=== PATIENT | male | born 1980 | race Caucasian/White ===

== ENCOUNTER → 2018-07-15 13:54 | Outpatient (CLI) | payer OTHER, SELFPAY ==
--- NOTE | 2018-07-15 13:57 | DI.MRI.S_ITS ---
PROCEDURE: MR THORACIC SPINE WO CON INDICATIONS: MYOFASCIAL STRAIN TECHNIQUE: Noncontrast sagittal T1 spine echo and T2 fast spin echo, sagittal STIR, axial T1 and T2 fast spin echo through the thoracic spine. COMPARISON: None. FINDINGS: Image quality: Excellent. Alignment and Curvature: There is normal bony alignment. Bone Marrow: There is an intraosseous hemangioma in T11 vertebral body. Marrow signal is otherwise normal. No acute vertebral body compression fractures. Spinal Cord: Visualized spinal cord is normal in size and signal. Paraspinous Soft Tissues: No paravertebral masses. Miscellaneous: There is degenerative disc disease with mild loss of disc height and disc desiccation at T6-T7. Mild posterior disc bulge is seen at T6-T7. On axial images, central canal and foramina appear widely patent at all scanned levels. IMPRESSION: 1. Mild degenerative disc disease at T6-T7. 2. No central canal stenosis or foraminal stenosis. Dictated by: Fátima Thornton M.D. on 07/15/2018 at 16:10 Approved by: Fátima Thornton M.D. on 07/15/2018 at 18:05
== END ==
PROVIDERS: Family Provider Family Medicine; PCP Family Medicine; Visit Provider Family Medicine
DX: S29.019A Strain of muscle and tendon of unspecified wall of thorax, initial encounter (principal); M51.34 Other intervertebral disc degeneration, thoracic region
CPT/HCPCS: 72146

== ENCOUNTER 2018-08-05 08:04 | Outpatient (CLI) | payer OTHER, SELFPAY ==
[2018-08-05] VITALS (11 sets, daily range): BP systolic 115–151; BP diastolic 81–99; PULSE 76–92; RESP 16–20; TEMP 36.7; O2SAT 96–100
--- NOTE | 2018-08-05 08:05 | DI.RAD.S_ITS ---
PROCEDURE: PAIN C/T INTERLAMINAR INJECT INDICATIONS: INTERVERTEBRAL DISC PLACEMENT FINDINGS: Fluoroscopic spot filming was performed to verify placement of spinal needles at the T9-T10 level(s), as labeled on the films. Appropriate location(s) of the needle tip(s) was confirmed by injection of iodinated contrast. IMPRESSION: Fluoroscopy for pain management. Dictated by: Fátima Thornton M.D. on 08/05/2018 at 16:22 Approved by: Fátima Thornton M.D. on 08/05/2018 at 16:23
[2018-08-05] MEDS: MIDAZOLAM 5 MG/5 ML VIAL IV (09:10)
[2018-08-05] MEDS: BUPIVACAINE 0.25% (PF) VIAL 2 ML INJ (09:21)
[2018-08-05] MEDS: IOPAMIDOL 15 ML VIAL 3 ML INJ (09:22)
[2018-08-05] MEDS: DEXAMETHASONE 10 MG/ML VIAL 30 MG INJ (09:22)
--- NOTE | 2018-08-05 09:30 | PM.PROC.1 ---
Procedures Date/Time Date of procedure: 08/05/18 Time of procedure: 09:31 General Procedure description: Preop diagnosis: Thoracic stenosis with HNP Postprocedure diagnosis: Thoracic stenosis with HNP Physician: Maurice Aguirre D.O. Indications: Teja is referred by Dr. Hu for treatment of thoracic DDD/DJD with radiculopathy Description of procedure: Fluoroscopic guided, contrast controlled T8-9 translaminar epidural steroid injection with conscious sedation. Following denial of allergy review potential side effects and complications, including, but not necessarily limited to, infection, allergic reaction, local tissue breakdown, temporary as well as permanent nerve injury, stroke, paralysis and possible , the patient indicated that they understood and agreed to proceed. An informed consent document was signed by the patient, witnessed by the nurse, and placed in the patient's chart. Additionally other treatment options including modalities, medications and physical therapy were reviewed with the patient. After review of previous anaesthesic history and IV conscious sedation the patient was deemed safe to proceed with todays procedure with IV conscious sedation as ASA class II designation. Safety time-out was performed to confirm patient ID, procedure to be performed and site of procedure. IV sedation was accomplished with a combination of 5mg of Versed administered by the RN after DO order, titrated to patient comfort during the course of the procedure while the patient remained responsive to all verbal commands In the prone position, following sterile prep and drape of the thoracic region the T8-9 translaminar space was identified fluoroscopically. The skin was anesthetized via 25 gauge 20 mm sheath with 1% lidocaine solution. At this point a 20 gauge epidural needle was atraumatically introduced and advanced under fluoroscopic guidance into the region of the T8-9 translaminar space depth was confirmed on lateral view. Radiographic data, including multiple fluoroscopic views of the thoracic spine, reveals spinal needle at the T8-9 translaminar space. Lateral views then showed the placement of the needle in the epidural space. Subsequent view show contrast material flowing superiorly and inferiorly in the epidural space. No vascular or intrathecal uptake is observed. At this point using loss of resistance technique with saline and the epidural space was entered. This was confirmed followed negative aspiration and injection of approximately 1.5 cc of Isovue 200 showed excellent epidural flow without vascular or intrathecal uptake. At this point, 1 cc of 1% lidocaine solution was admitted as a test dose and the patient was observed for an appropriate period of time without signs or symptoms of complications, including abdominal pain, shortness of breath, bilateral upper and lower extremity weakness, nausea and vomiting, prior to steroid injection. Subsequently, 3 cc or 30 mg of dexamethasone was then injected without incident. The patient tolerated the procedure well without signs of complications and subsequently was transferred to the recovery room for further monitoring. The patient was then transferred to the recovery area with their observed for an appropriate time after the injection. Patient reported a VAS score of 7 prior to the procedure and postprocedure VAS of 2. Total fluoroscopy time: 56.3 sec Total conscious sedation time: 24 min Maurice Aguirre D.O. Complications: none
== END 2018-08-05 09:52 ==
LOC: RAD 08:05
PROVIDERS: Family Provider Family Medicine; PCP Family Medicine; Visit Provider Physical Medicine & Rehabilitation
DX: M51.14 Intervertebral disc disorders with radiculopathy, thoracic region (principal); M48.04 Spinal stenosis, thoracic region
CPT/HCPCS: 62321; 99152; J1100; J2250

== ENCOUNTER → 2020-03-04 16:08 | Outpatient (CLI) | payer OTHER, SELFPAY ==
--- NOTE | 2020-03-04 16:12 | DI.RAD.S_ITS ---
PROCEDURE: XR THORACIC SPINE 3V INDICATIONS: Progressive localized pain around T10 TECHNIQUE: 3 views of the thoracic spine were acquired. COMPARISON: None. FINDINGS: Bones: No fractures or dislocations. No suspicious bony lesions. Soft tissues: No paravertebral stripe thickening. IMPRESSION: Negative examination. If the patient's pain or other symptoms persist, consider further evaluation with MRI Dictated by: Corey Vizcarra M.D. on 03/04/2020 at 16:28 Approved by: Corey Vizcarra M.D. on 03/04/2020 at 16:29
== END ==
PROVIDERS: Family Provider Family Medicine; Referring Provider Family Medicine; Visit Provider Family Medicine
DX: M51.24 Other intervertebral disc displacement, thoracic region (principal)
CPT/HCPCS: 72072

== ENCOUNTER → 2020-09-15 09:30 | Outpatient (CLI) | payer OTHER, SELFPAY ==
[2020-09-15 10:03] LABS: Add Manual Diff / Slide Review NO; Basophils Absolute Auto 100 /uL (0-100); Basophils Percent Auto 1.1 % (0-2); Eosinophils Absolute Auto 100 /uL (0-450); Eosinophils Percent Auto 1.5 % (2-4); Hematocrit 46.4 % (41-53); Lymphocytes Absolute Auto 1700 /uL (1100-4500); Lymphocytes Percent Auto 37.5 % (25-40); Mean Corpuscular HGB Conc 34.4 % (30-36); Mean Corpuscular Hemoglobin 30.6 PG (26-34); Mean Corpuscular Volume 88.9 fL (80-100); Monocytes Absolute Auto 300 /uL (0-900); Monocytes Percent Auto 6.5 % (3-14); Neutrophils Absolute Auto 2500 /uL (1500-7000); Neutrophils Percent Auto 53.4 % (50-75); Platelet Count 242 X10^3/uL (150-400); Red Blood Cell Count 5.22 X10^6/uL (4.5-5.9); Red Cell Distribution Width 12.9 % (11.6-14.8); White Blood Cell Count 4.7 X10^3/uL (4.5-11.0)
[2020-09-15 10:49] LABS: Alanine Aminotransferase 25 IU/L (<50); Albumin 4.8 g/dL (3.5-5.0); Albumin Globulin Ratio 1.7 (1.0-2.8); Alkaline Phosphatase 41 U/L (38-126); Aspartate Aminotransferase 23 IU/L (17-59); BUN Creatinine Ratio 18.1 (6-22); Bilirubin Total 0.9 mg/dL (0.2-1.3); Blood Urea Nitrogen 17 mg/dL (9-20); Calcium 9.8 mg/dL (8.4-10.2); Carbon Dioxide 28 mmol/L (22-32); Chloride 103 mmol/L (98-107); Cholesterol 194 mg/dL (140-199); Estimated Glomerular Filt Rate > 60.0 mL/min (>60); Globulin 2.9 g/dL (1.7-4.1); Glucose 106 mg/dL (70-100); HDL Cholesterol 74 mg/dL (40-60); HEMOLYSIS < 15 (0-50); LDL Cholesterol Calculated 100 mg/dL (<100); Potassium 4.1 mmol/L (3.4-5.1); Sodium 137 mmol/L (137-145); Total Protein 7.7 g/dL (6.3-8.2); Triglycerides 100 mg/dL (35-150)
[2020-09-15 11:21] LABS: TSH w/ Reflex to FT4 4.02 uIU/mL (0.47-4.68)
== END ==
PROVIDERS: Family Provider Family Medicine; PCP Family Medicine; Referring Provider Family Medicine; Visit Provider Family Medicine
DX: Z13.220 Encounter for screening for lipoid disorders (principal); Z13.228 Encounter for screening for other metabolic disorders; Z13.29 Encounter for screening for other suspected endocrine disorder
CPT/HCPCS: 36415; 80053; 80061; 84443; 85025

== ENCOUNTER → 2021-09-13 07:26 | Outpatient (CLI) | payer OTHER, SELFPAY ==
[2021-09-13 08:19] LABS: Alanine Aminotransferase 54 IU/L (<50); Albumin 4.8 g/dL (3.5-5.0); Albumin Globulin Ratio 1.7 (1.0-2.8); Alkaline Phosphatase 42 U/L (38-126); Aspartate Aminotransferase 39 IU/L (17-59); BUN Creatinine Ratio 13.4 (6-22); Bilirubin Total 0.7 mg/dL (0.2-1.3); Blood Urea Nitrogen 13 mg/dL (9-20); Calcium 9.7 mg/dL (8.4-10.2); Carbon Dioxide 27 mmol/L (22-32); Chloride 104 mmol/L (98-107); Cholesterol 197 mg/dL (140-199); Estimated Glomerular Filt Rate > 60.0 mL/min (>60); Globulin 2.8 g/dL (1.7-4.1); Glucose 111 mg/dL (70-100); HDL Cholesterol 98 mg/dL (40-60); HEMOLYSIS < 15 (0-50); LDL Cholesterol Calculated 88 mg/dL (<100); Potassium 4.5 mmol/L (3.4-5.1); Sodium 140 mmol/L (137-145); Total Protein 7.6 g/dL (6.3-8.2); Triglycerides 56 mg/dL (35-150)
[2021-09-13 08:21] LABS: Add Manual Diff / Slide Review NO; Basophils Absolute Auto 100 /uL (0-100); Basophils Percent Auto 1.3 % (0-2); Eosinophils Absolute Auto 100 /uL (0-450); Eosinophils Percent Auto 2.3 % (2-4); Hematocrit 45.7 % (41-53); Hemoglobin 15.2 g/dL (13.5-17.5); Lymphocytes Absolute Auto 1300 /uL (1100-4500); Lymphocytes Percent Auto 32.1 % (25-40); Mean Corpuscular HGB Conc 33.3 % (30-36); Mean Corpuscular Hemoglobin 29.5 PG (26-34); Mean Corpuscular Volume 88.7 fL (80-100); Monocytes Absolute Auto 300 /uL (0-900); Monocytes Percent Auto 6.5 % (3-14); Neutrophils Absolute Auto 2400 /uL (1500-7000); Neutrophils Percent Auto 57.8 % (50-75); Platelet Count 242 X10^3/uL (150-400); Red Blood Cell Count 5.15 X10^6/uL (4.5-5.9); White Blood Cell Count 4.1 X10^3/uL (4.5-11.0)
[2021-09-13 08:54] LABS: TSH w/ Reflex to FT4 2.66 uIU/mL (0.47-4.68)
[2021-09-18 11:08] LABS: Testosterone % Fr + Wkly bound 22.1 % (9.0-46.0); Testosterone Fr+Wkly bound 112.8 ng/dL (40.0-250.0); Testosterone, Total 510.4 ng/dL (264.0-916.0)
== END ==
PROVIDERS: Family Provider Family Medicine; PCP Family Medicine; Referring Provider Family Medicine; Visit Provider Family Medicine
DX: Z00.00 Encounter for general adult medical examination without abnormal findings (principal); M51.24 Other intervertebral disc displacement, thoracic region
CPT/HCPCS: 36415; 80053; 80061; 84403; 84443; 85025

== ENCOUNTER 2023-04-29 08:17 | Emergency (ER) | payer OTHER, SELFPAY ==
[2023-04-29 08:32] VITALS: BP 184/108; PULSE 83; RESP 18; TEMP 36.6; O2SAT 99; BMI 27.4
[2023-04-29 08:48] LABS: Add Manual Diff / Slide Review NO; Basophils Absolute Auto 100 /uL (0-100); Eosinophils Absolute Auto 100 /uL (0-450); Eosinophils Percent Auto 1.1 % (2-4); Hematocrit 44.5 % (41-53); Hemoglobin 15.2 g/dL (13.5-17.5); Lymphocytes Absolute Auto 1900 /uL (1100-4500); Lymphocytes Percent Auto 21.5 % (25-40); Mean Corpuscular HGB Conc 34.2 % (30-36); Mean Corpuscular Hemoglobin 30.4 PG (26-34); Mean Corpuscular Volume 88.9 fL (80-100); Monocytes Absolute Auto 600 /uL (0-900); Monocytes Percent Auto 6.7 % (3-14); Neutrophils Absolute Auto 6200 /uL (1500-7000); Neutrophils Percent Auto 69.7 % (50-75); Platelet Count 312 X10^3/uL (150-400); Red Blood Cell Count 5.01 X10^6/uL (4.5-5.9); Red Cell Distribution Width 13.4 % (11.6-14.8); White Blood Cell Count 8.9 X10^3/uL (4.5-11.0)
[2023-04-29 08:50] LABS: Bacteria Urine Occasional (0-1); RBC Urine 0-1/HPF (0-5/HPF); WBC Urine 0-1/HPF (0-5/HPF)
[2023-04-29 08:51] LABS: Culture Indicated Urine Cult Not Indicated; Squamous Epithelial Cell Urine 0-1 /HPF (0-5/HPF)
[2023-04-29 08:52] LABS: Alanine Aminotransferase 30 IU/L (<50); Albumin 4.8 g/dL (3.5-5.0); Albumin Globulin Ratio 1.3 (1.0-2.8); Alkaline Phosphatase 53 U/L (38-126); Aspartate Aminotransferase 31 IU/L (17-59); Bilirubin Total 0.7 mg/dL (0.2-1.3); Blood Urea Nitrogen 16 mg/dL (9-20); Calcium 9.9 mg/dL (8.4-10.2); Carbon Dioxide 23 mmol/L (22-32); Chloride 103 mmol/L (98-107); Estimated Glomerular Filt Rate > 60 mL/min (>60); Globulin 3.6 g/dL (1.7-4.1); Glucose 102 mg/dL (70-100); HEMOLYSIS 37 (0-50); Lipase 140 U/L (23-300); Sodium 138 mmol/L (137-145); Total Protein 8.4 g/dL (6.3-8.2)
[2023-04-29] MEDS: KETOROLAC 30 MG/ML VIAL IV (08:58)
[2023-04-29 09:00] VITALS: O2SAT 96
[2023-04-29 09:01] VITALS: BP 148/108; PULSE 83; RESP 22; O2SAT 100
--- NOTE | 2023-04-29 09:17 | DI.CT.S_ITS ---
PROCEDURE: CT KIDNEY URETER BLADDER (KUB) INDICATIONS: R side flank pain eval for stone TECHNIQUE: Axial sections were acquired from the lung bases to the pubic symphysis. Coronal and sagittal reformats were performed. For radiation dose reduction, the following was used: automated exposure control, adjustment of mA and/or kV according to patient size. COMPARISON: None. FINDINGS: Image quality: Excellent. Lung bases: Unremarkable. Heart: No significant findings. URINARY: Right Kidney: Mild hydronephrosis. Multiple tiny nonobstructing stones, the largest of which is in the lower pole, measuring 2 mm. Right Ureter: A 5 x 4 mm stone obstructs the right ureter at the level of the ureterovesical junction. It has a Hounsfield measurement of 725. It results in mild hydroureter and hydronephrosis. Left Kidney: 5 mm nonobstructing lower pole stone measuring 1002 Hounsfield units. No hydronephrosis. Left Ureter: No hydroureter. Bladder: Normal wall thickness. No stones. ABDOMEN: Liver: Unremarkable. Gallbladder: Contracted, without calcified gallstones, within normal limits. Biliary ducts: Unremarkable. Pancreas: Unremarkable. Spleen: Unremarkable. Adrenal Glands: Unremarkable. Stomach and Bowel: Occasional colonic diverticuli. Otherwise unremarkable. Peritoneum: No abnormal intraperitoneal fluid. No free air. Ventral Wall: No hernia. Abdominal Nodes: No enlarged retroperitoneal or mesenteric lymph nodes. Vessels: Aorta and inferior vena cava are normal in size. PELVIS: Pelvic Organs: Unremarkable. Pelvic Nodes: Unremarkable. Miscellaneous: No inguinal hernias are seen. Bones: Unremarkable. IMPRESSION: 1. A 5 x 4 mm stone obstructs the right ureter at the level of the ureterovesical junction, with mild resulting hydronephrosis. 2. Bilateral nonobstructing stones. 3. Hounsfield measurements of largest stones as described above. Dictated by: Fred Sauceda M.D. on 04/29/2023 at 10:05 Approved by: Fred Sauceda M.D. on 04/29/2023 at 10:12
--- NOTE | 2023-04-29 09:17 | ED.GENADULT ---
HPI - General Adult General Chief complaint: Abdominal Pain Stated complaint: sent by [place]/ abd pain starts in back Time Seen by Provider: 04/29/23 08:55 Source: patient Mode of arrival: Ambulatory History of Present Illness HPI narrative: Patient is a 42-year-old male who was sent over from the walk-in clinic for evaluation of right flank pain. He states that a couple days ago he started to have right-sided flank pain. Initially thought that it was muscular in origin however since that time and has now progressed to pain down the right side of his abdomen into his right testicle. He is not having any urinary symptoms. By the time I evaluated him he had received a dose of Toradol and he states his pain has almost completely gone. No fevers. No blood in his urine. No history of kidney stones. No prior history of abdominal surgeries. No vomiting. Has not tried anything for symptoms prior to arrival. Related Data Previous Rx's Medication Instructions Recorded ibuprofen 800 mg tablet 800 mg PO Q8H PRN pain #90 tabs 06/06/20 lidocaine 5 % topical patch 1 patch topical DAILY #30 ea 01/24/22 (Lidoderm) albuterol sulfate 90 mcg/actuation See Rx Instructions .Route 07/24/22 aerosol inhaler .COMPLEX #36 grams lisinopril 20 mg tablet 20 mg PO DAILY #90 tabs 01/28/23 methocarbamol 500 mg tablet 500 mg PO BEDTIME PRN back pain 03/07/23 #30 tabs hydrocodone 5 mg-acetaminophen 325 1 tab PO BID PRN pain #60 tabs 04/19/23 mg tablet hydrocodone 5 mg-acetaminophen 325 1 tab PO Q4-6H PRN pain #12 tabs 04/29/23 mg tablet ondansetron 4 mg disintegrating 4 mg PO Q6H PRN nausea and 04/29/23 tablet vomiting #14 tabs tamsulosin 0.4 mg capsule (Flomax) 0.4 mg PO DAILY #14 caps 04/29/23 Allergies Allergy/AdvReac Type Severity Reaction Status Date / Time latex [LATEX] Allergy Unknown Verified 01/04/23 15:14 Review of Systems Review of Systems ROS Unobtainable: All systems reviewed & are unremarkable except as noted in HPI and below Patient History Medical History Allergic rhinitis (Unknown) Asthma (Unknown) Epicondylitis, lateral (~2011) Hyperglycemia Hypertension Low back pain (Unknown) Well adult on routine health check Surgical History No history of previous surgery Family History Mother Hearing loss Memory loss Grandfather Cancer Alzheimer disease Grandfather Cancer Social History Smoking Status: Never smoker alcohol intake: current (14 beers per week ) substance use type: does not use Smoking Status: Never smoker Substance Use Type: does not use Exam Initial Vital Signs Initial Vital Signs: Vital Signs Temperature 97.8 F 04/29/23 08:32 Pulse Rate 83 04/29/23 08:32 Respiratory Rate 18 04/29/23 08:32 Blood Pressure 184/108 H 04/29/23 08:32 Pulse Oximetry 99 04/29/23 08:32 Oxygen Delivery Method Room Air 04/29/23 08:32 Const General: cooperative, comfortable and No ill appearing HENMT Head: normal to inspection and normocephalic Resp Effort & Inspection: normal respiratory effort Cardio Rate: regular rate GI Inspection: normal to inspection and non-distended Palpation: soft, No firm and No tender Back/Spine/Pelvis Back: No CVA tenderness Skin General: no rashes or lesions noted Neuro General: patient alert, patient awake and moves all extremities Extrem General: normal to inspection and capillary refill normal Course Orders Ordered: ED Orders 04/29/23 08:25 Urine Microscopic Stat 04/29/23 08:30 Complete Blood Count AUTO DIFF Stat Comprehensive Metabolic Panel Stat Lipase Stat 04/29/23 09:17 CT kidney ureter bladder (KUB) Stat Ondansetron HCl (Ondansetron 4 Mg/2 Ml Inj) 4 mg IV NOW PRN PRN Reason: Nausea And Vomiting Ondansetron HCl (Ondansetron 4 Mg Odt) 4 mg PO NOW PRN PRN Reason: Nausea And Vomiting Discontinued Medications Ketorolac Tromethamine (Ketorolac 30 Mg/Ml Vial) 30 mg IV NOW ONE Stop: 04/29/23 08:56 Last Admin: 04/29/23 08:58 Dose: 30 mg Documented By: AT Vital Signs Vital signs: Vital Signs - 8 hr 06/26/23 08:32 04/29/23 09:00 04/29/23 09:01 Temperature 97.8 F Pulse Rate 83 83 Respiratory Rate 18 22 Blood Pressure 184/108 H Pulse Oximetry 99 96 100 Oxygen Delivery Method Room Air Room Air 04/29/23 09:01 04/29/23 09:25 04/29/23 09:25 Temperature Pulse Rate 78 Respiratory Rate Blood Pressure 148/108 H 151/99 H Pulse Oximetry 97 Oxygen Delivery Method 04/29/23 09:30 04/29/23 09:30 Temperature Pulse Rate 79 Respiratory Rate 18 Blood Pressure 136/85 Pulse Oximetry 95 Oxygen Delivery Method Room Air Medical Decision Making Lab Data Lab results reviewed: Yes I reviewed the patient's lab results. 04/29/23 08:30 04/29/23 08:30 Labs: Lab Results 04/29/23 04/29/23 04/29/23 Range/Units 08:25 08:30 08:30 WBC 8.9 (4.5-11.0) X10^3/uL RBC 5.01 (4.5-5.9) X10^6/uL Hgb 15.2 (13.5-17.5) g/dL Hct 44.5 (41-53) % MCV 88.9 (80-100) fL MCH 30.4 (26-34) PG MCHC 34.2 (30-36) % RDW 13.4 (11.6-14.8) % Plt Count 312 (150-400) X10^3/uL Neut % (Auto) 69.7 (50-75) % Lymph % (Auto) 21.5 L (25-40) % [place] % (Auto) 6.7 (3-14) % Eos % (Auto) 1.1 L (2-4) % Baso % (Auto) 1.0 (0-2) % Neut # (Auto) 6200 (1357-2647) /uL Lymph # (Auto) 1900 (1114-5275) /uL [place] # (Auto) 600 (0-900) /uL Eos # (Auto) 100 (0-450) /uL Baso # (Auto) 100 (0-100) /uL Sodium 138 (137-145) mmol/L Potassium 4.0 (3.4-5.1) mmol/L Chloride 103 (98-107) mmol/L Carbon Dioxide 23 (22-32) mmol/L BUN 16 (9-20) mg/dL Creatinine 1.23 (0.66-1.25) mg/dL Estimated GFR > 60 (>60) mL/min BUN/Creatinine Ratio 13.0 (6-22) Glucose 102 H (70-100) mg/dL Calcium 9.9 (8.4-10.2) mg/dL Total Bilirubin 0.7 (0.2-1.3) mg/dL AST 31 (17-59) IU/L ALT 30 (<50) IU/L Alkaline Phosphatase 53 (38-126) U/L Total Protein 8.4 H (6.3-8.2) g/dL Albumin 4.8 (3.5-5.0) g/dL Globulin 3.6 (1.7-4.1) g/dL Albumin/Globulin Ratio 1.3 (1.0-2.8) Lipase 140 (23-300) U/L Urine RBC 0-1/hpf (0-5/HPF) Urine WBC 0-1/hpf (0-5/HPF) Ur Squamous Epith Cells 0-1 /hpf (0-5/HPF) Urine Bacteria Occasional (0-1) (None) Ur Culture Indicated? Cult not indicated Urine Dip Bedside Urine Glucose Negative Bedside Urine Bilirubin - Negative Bedside Urine Ketone - Negative Urine Specific [place] 1.020 Bedside Urine Occult Blood + Bedside Urine pH 6.0 Bedside Urine Protein - Negative Bedside Urine Urobilinogen - Negative Bedside Urine Nitrite - Negative Bedside Urine Leukocytes - Negative Esterase Point of care testing: Urine Dip Bedside Urine Glucose Negative Bedside Urine Bilirubin - Negative Bedside Urine Ketone - Negative Urine Specific [place] 1.020 Bedside Urine Occult Blood + Bedside Urine pH 6.0 Bedside Urine Protein - Negative Bedside Urine Urobilinogen - Negative Bedside Urine Nitrite - Negative Bedside Urine Leukocytes - Negative Esterase Imaging Data CT scan - abdomen/pelvis: Radiologist's Impression: PROCEDURE:? CT KIDNEY URETER BLADDER (KUB) ? INDICATIONS:? R side flank pain eval for stone ? TECHNIQUE:? Axial sections were acquired from the lung bases to the pubic symphysis.? Coronal and sagittal reformats were performed.? For radiation dose reduction, the following was used: ?automated exposure control, adjustment of mA and/or kV according to patient size.? ? COMPARISON:? None. ? FINDINGS:? Image quality:? Excellent.? ? Lung bases:? Unremarkable.? ? Heart:? No significant findings. ? URINARY: Right Kidney:? Mild hydronephrosis.? Multiple tiny nonobstructing stones, the largest of which is in the lower pole, measuring 2 mm. Right Ureter:? A 5 x 4 mm stone obstructs the right ureter at the level of the ureterovesical junction.? It has a Hounsfield measurement of 725. It results in mild hydroureter and hydronephrosis.? ? Left Kidney:? 5 mm nonobstructing lower pole stone measuring 1002 Hounsfield units.? No hydronephrosis. Left Ureter:? No hydroureter.? ? Bladder:? Normal wall thickness. No stones. ? ? ? ABDOMEN: Liver:? Unremarkable.? ? Gallbladder:? Contracted, without calcified gallstones, within normal limits.? ? Biliary ducts:? Unremarkable.? ? Pancreas:? Unremarkable.? ? Spleen:? Unremarkable.? ? Adrenal Glands:? Unremarkable.? ? ? Stomach and Bowel:? Occasional colonic diverticuli.? Otherwise unremarkable.? Peritoneum:? No abnormal intraperitoneal fluid.? No free air.? ? Ventral Wall: ? No hernia.? Abdominal Nodes:? No enlarged retroperitoneal or mesenteric lymph nodes.? Vessels:? Aorta and inferior vena cava are normal in size.? ? PELVIS: Pelvic Organs:? Unremarkable.? ? Pelvic Nodes: Unremarkable. Miscellaneous: No inguinal hernias are seen. ? ? ? Bones:? Unremarkable. ? IMPRESSION:? ? 1.? A 5 x 4 mm stone obstructs the right ureter at the level of the ureterovesical junction, with mild resulting hydronephrosis. ? 2. Bilateral nonobstructing stones. ? 3. Hounsfield measurements of largest stones as described above. MDM Narrative Medical decision making narrative: Urinalysis has blood but no signs of infection. Kidney functions unremarkable. He is never had a kidney stone in the past. CT scan does show distal right ureteral stone and also multiple renal stones. I did discuss this with him. No indication for emergent urologic consultation. Will discharge home with symptom treatment. He was given return precautions and follow-up instructions. He expressed understanding and agreement with plan. Discharge Plan Departure Patient Disposition: Home Clinical Impression: Right ureteral stone Instructions: DI for Kidney Stones Activity Restrictions/Additional Instructions: Medications to try to help with the nausea in the pain or sent to the pharmacy of your choice. Please take them as needed and as directed. There was also a medicine called Flomax/tamsulosin. This is a 1 time a day medicine that you will taken to you pass the stone. You can stop taking this medicine once you pass the stone regardless of how long you have taken it. You can also continue to take anti-inflammatories such as Motrin/ibuprofen or Naprosyn. You can purchase these [id number]. You were also given information for Urology here at the hospital. If your symptoms are not improving you can contact them for follow-up. Return to the emergency department for fevers, inability to urinate, inability to tolerate oral intake, pain that is not controlled her any other worsening symptoms. Prescriptions: New tamsulosin [Flomax] 0.4 mg capsule 0.4 mg PO DAILY Qty: 14 0RF hydrocodone-acetaminophen 5-325 mg tablet 1 tab PO Q4-6H PRN (Reason: pain) Qty: 12 0RF ondansetron 4 mg tablet,disintegrating 4 mg PO Q6H PRN (Reason: nausea and vomiting) Qty: 14 0RF No Action albuterol sulfate 90 mcg/actuation HFA aerosol inhaler See Rx Instructions .ROUTE .COMPLEX Qty: 36 3RF Dose Instruction: INHALE 1 PUFF BY MOUTH EVERY 4 TO 6 HOURS NEEDED FOR SHORTNESS OF BREATH OR WHEEZING Rx Instructions: INHALE 1 PUFF BY MOUTH EVERY 4 TO 6 HOURS NEEDED FOR SHORTNESS OF BREATH OR WHEEZING lisinopril 20 mg tablet 20 mg PO DAILY Qty: 90 3RF methocarbamol 500 mg tablet 500 mg PO BEDTIME PRN (Reason: back pain) Qty: 30 1RF hydrocodone-acetaminophen 5-325 mg tablet 1 tab PO BID PRN (Reason: pain) Qty: 60 0RF ibuprofen 800 mg tablet 800 mg PO Q8H PRN (Reason: pain) Qty: 90 3RF Hold Instructions: Home Medication placed on hold at Doctor's office lidocaine [Lidoderm] 5 % adhesive patch,medicated 1 patch TOP DAILY Qty: 30 1RF Rx Instructions: leave on most painful area for up to 12 hrs. Apply at bedtime Referrals: Miley Landon MD [Physician] - Harris Mayers, [Primary Care Provider] - Stand Alone Forms: Patient Portal/API
[2023-04-29 09:25] VITALS: BP 151/99; PULSE 78; O2SAT 97
[2023-04-29 09:30] VITALS: BP 136/85; PULSE 79; RESP 18; O2SAT 95
[2023-04-29 10:00] VITALS: BP 131/84; PULSE 76; O2SAT 95
== END 2023-04-29 10:34 | disposition home or self-care (01) ==
PROVIDERS: Emergency Provider Emergency Medicine; Family Provider Family Medicine; PCP Family Medicine
DX: N20.1 Calculus of ureter (principal)
CPT/HCPCS: 36415; 74176; 80053; 81003; 81015; 83690; 85025; 96374; 99284; J1885

== ENCOUNTER → 2023-08-12 16:34 | Outpatient (CLI) | payer OTHER, SELFPAY ==
[2023-08-12 17:30] LABS: Alanine Aminotransferase 27 IU/L (<50); Albumin 4.4 g/dL (3.5-5.0); Albumin Globulin Ratio 1.5 (1.0-2.8); Alkaline Phosphatase 40 U/L (38-126); Aspartate Aminotransferase 25 IU/L (17-59); BUN Creatinine Ratio 20.8 (6-22); Bilirubin Total 0.3 mg/dL (0.2-1.3); Blood Urea Nitrogen 20 mg/dL (9-20); Calcium 9.2 mg/dL (8.4-10.2); Carbon Dioxide 24 mmol/L (22-32); Chloride 103 mmol/L (98-107); Estimated Glomerular Filt Rate > 60 mL/min (>60); Glucose 90 mg/dL (70-100); HEMOLYSIS < 15 (0-50); Potassium 4.1 mmol/L (3.4-5.1); Sodium 138 mmol/L (137-145); Total Protein 7.4 g/dL (6.3-8.2)
[2023-08-12 17:31] LABS: Hemoglobin A1C% w Est Avg Glu 5.1 % (4.0-6.0)
== END ==
PROVIDERS: Family Provider Family Medicine; PCP Family Medicine; Referring Provider Family Medicine; Visit Provider Family Medicine
DX: R73.03 Prediabetes (principal); I10 Essential (primary) hypertension; R73.9 Hyperglycemia, unspecified; Z00.00 Encounter for general adult medical examination without abnormal findings
CPT/HCPCS: 36415; 80053; 83036

== ENCOUNTER → 2024-09-11 08:22 | Outpatient (CLI) | payer OTHER, SELFPAY ==
[2024-09-11 08:59] LABS: Add Manual Diff / Slide Review NO; Basophils Absolute Auto 100 /uL (0-100); Basophils Percent Auto 1.4 % (0-2); Eosinophils Absolute Auto 100 /uL (0-450); Eosinophils Percent Auto 3.1 % (2-4); Hematocrit 44.2 % (41-53); Hemoglobin 14.7 g/dL (13.5-17.5); Lymphocytes Absolute Auto 1600 /uL (1100-4500); Mean Corpuscular HGB Conc 33.3 % (30-36); Mean Corpuscular Hemoglobin 29.9 PG (26-34); Monocytes Absolute Auto 300 /uL (0-900); Monocytes Percent Auto 7.5 % (3-14); Neutrophils Absolute Auto 2100 /uL (1500-7000); Platelet Count 225 X10^3/uL (150-400); Red Blood Cell Count 4.92 X10^6/uL (4.5-5.9); Red Cell Distribution Width 13.1 % (11.6-14.8); White Blood Cell Count 4.3 X10^3/uL (4.5-11.0)
[2024-09-11 09:19] LABS: Alanine Aminotransferase 26 IU/L (<50); Albumin 4.4 g/dL (3.5-5.0); Albumin Globulin Ratio 1.8 (1.0-2.8); Alkaline Phosphatase 41 U/L (38-126); Aspartate Aminotransferase 23 IU/L (17-59); BUN Creatinine Ratio 24.7 (6-22); Bilirubin Total 0.7 mg/dL (0.2-1.3); Blood Urea Nitrogen 24 mg/dL (9-20); Calcium 9.6 mg/dL (8.4-10.2); Carbon Dioxide 25 mmol/L (22-32); Chloride 105 mmol/L (98-107); Cholesterol 188 mg/dL (140-199); Estimated Glomerular Filt Rate > 60 mL/min (>60); Globulin 2.4 g/dL (1.7-4.1); Glucose 99 mg/dL (70-100); HDL Cholesterol 74 mg/dL (40-60); HEMOLYSIS < 15 (0-50); LDL Cholesterol Calculated 103 mg/dL (<100); Potassium 4.6 mmol/L (3.4-5.1); Sodium 137 mmol/L (137-145); Total Protein 6.8 g/dL (6.3-8.2); Triglycerides 54 mg/dL (35-150)
== END ==
PROVIDERS: Family Provider Family Medicine; PCP Family Medicine; Referring Provider Family Medicine; Visit Provider Family Medicine
DX: Z00.00 Encounter for general adult medical examination without abnormal findings (principal); I10 Essential (primary) hypertension; M54.6 Pain in thoracic spine; Z87.442 Personal history of urinary calculi
CPT/HCPCS: 36415; 80053; 80061; 85025

== ENCOUNTER → 2025-02-18 09:23 | Outpatient (CLI) | payer OTHER, SELFPAY ==
--- NOTE | 2025-02-18 09:24 | DI.RAD.S_ITS ---
PROCEDURE: XR LUMBAR SPINE 2-3V INDICATIONS: localizing low back pain TECHNIQUE: 3 views of the lumbar spine were acquired. COMPARISON: [facility], , L-SPINE 2-3 VIEWS, 06/26/2017, 16:13. FINDINGS: Lumbar spine curvature and alignment: Normal. Bones: There are no osseous abnormalities. Disc spaces: Mild L5-S1 degenerative disc and facet disease noted Soft tissues: No soft tissue swelling, calcification or mass. IMPRESSION: Mild L5-S1 degenerative disc and facet disease-slight progression Dictated by: Louie Hatfield M.D. on 02/19/2025 at 12:12 Approved by: Louie Hatfield M.D. on 02/19/2025 at 12:14
== END ==
PROVIDERS: PCP Family Medicine; Referring Provider Family Medicine; Visit Provider Family Medicine
DX: M51.24 Other intervertebral disc displacement, thoracic region (principal); M51.379 Other intervertebral disc degeneration, lumbosacral region without mention of lumbar back pain or lower extremity pain; M47.817 Spondylosis without myelopathy or radiculopathy, lumbosacral region; I10 Essential (primary) hypertension
CPT/HCPCS: 72100

== ENCOUNTER → 2025-10-15 08:56 | Outpatient (CLI) | payer OTHER, SELFPAY ==
[2025-10-15 09:53] LABS: Add Manual Diff / Slide Review NO; Hematocrit 45.0 % (41-53); Hemoglobin 15.2 g/dL (13.5-17.5); Lymphocytes Absolute Auto 1800 /uL (1100-4500); Mean Corpuscular HGB Conc 33.9 % (30-36); Mean Corpuscular Hemoglobin 30.0 PG (26-34); Mean Corpuscular Volume 88.7 fL (80-100); Platelet Count 251 X10^3/uL (150-400)
[2025-10-15 10:14] LABS: Alanine Aminotransferase 28 IU/L (<50); Albumin 4.6 g/dL (3.5-5.0); Albumin Globulin Ratio 1.7 (1.0-2.8); Alkaline Phosphatase 52 U/L (38-126); Blood Urea Nitrogen 19 mg/dL (9-20); Calcium 9.6 mg/dL (8.4-10.2); Carbon Dioxide 29 mmol/L (22-32); Chloride 104 mmol/L (98-107); Cholesterol 192 mg/dL (140-199); Estimated Glomerular Filt Rate > 60 mL/min (>60); Globulin 2.7 g/dL (1.7-4.1); Glucose 106 mg/dL (70-99); HDL Cholesterol 101 mg/dL (40-60); HEMOLYSIS < 15 (0-50); Potassium 5.2 mmol/L (3.4-5.1); Sodium 139 mmol/L (137-145); Total Protein 7.3 g/dL (6.3-8.2); Triglycerides 65 mg/dL (35-150)
[2025-10-15 10:24] LABS: Hemoglobin A1C% w Est Avg Glu 5.4 % (4.0-6.0)
== END ==
PROVIDERS: PCP Family Medicine; Referring Provider Family Medicine; Visit Provider Family Medicine
DX: Z00.00 Encounter for general adult medical examination without abnormal findings (principal); R73.9 Hyperglycemia, unspecified; I10 Essential (primary) hypertension; Z87.442 Personal history of urinary calculi; Z83.719 Family history of colon polyps, unspecified
CPT/HCPCS: 36415; 80053; 80061; 83036; 85025